=== PATIENT | male | born 1960 | race Caucasian/White ===

== ENCOUNTER 2017-09-05 05:20 | Inpatient (IN) | payer BC ==
[~2017-09-05] VITALS: Ht 188 cm; Wt 107.0 kg
[2017-09-05] VITALS (58 sets, daily range): BP systolic 119–161; BP diastolic 70–123
[2017-09-05 05:47] LABS: Basophils # (auto) 0 uL; Basophils % (auto) 0.2 % (0.0-2.0); Eosinophils # (auto) 0.3 uL; Eosinophils % (auto) 3.4 % (0.0-7.0); Hematocrit 42.7 % (41.0-53.0); Hemoglobin 14.8 g/dL (13.5-17.5); Lymphocytes # (auto) 2.7 uL; Lymphocytes % (auto) 28.3 % (10.0-50.0); Mean Corpuscular Hemoglobin 33.3 pg (28.0-32.0); Mean Corpuscular Hgb Conc. 34.7 g/dL (32.0-36.0); Mean Platelet Volume 7.6 fL (6.9-10.8); Monocytes # (auto) 0.7 uL; Monocytes % (auto) 7.7 % (0.0-12.0); Neutrophils # (auto) 5.7 uL; Neutrophils % (auto) 60.4 % (37.0-80.0); Nucleated Red Blood Cells % 0.1 %; Platelet Count (auto) 223 10^3/uL (140-450); Red Cell Distribution Width 13.1 % (11.8-14.3); White Blood Cell 9.4 10^3/uL (4.4-10.8)
[2017-09-05] MEDS ORDERED: ONDANSETRON HCL 4 MG/2 ML VIAL IV ONE (06:00)
[2017-09-05] MEDS ORDERED: MORPHINE SULF INJ 2 MG/ML SYRINGE 1ML IV ONE ×2 (06:00→07:00)
[2017-09-05 06:03] LABS: INR 0.94 (0.9-1.15); Partial Thromboplastin Time 23.1 sec (22.64-33.71); Prothrombin Time 10.2 sec (9.37-12.3)
[2017-09-05 06:09] LABS: Albumin 4.5 g/dL (3.4-5.0); BUN/Creatinine Ratio 12.9; Bilirubin, Total 0.4 mg/dL (0.2-1.0); Calcium 9.4 mg/dL (8.5-10.1); Potassium 4.6 mmol/L (3.5-5.1); Total Protein 8.4 g/dL (6.4-8.2)
[2017-09-05 06:10] LABS: Urine Bilirubin Negative (Negative); Urine Blood Negative /uL (Negative); Urine Color Yellow (Yellow); Urine Glucose 4+ mg/dL (Normal); Urine Ketone 1+ (Negative); Urine Nitrite Negative (Negative); Urine RBC <1 /hpf (0 - 3); Urine Squamous Epithelial Cell FEW /hpf (<5); Urine Urobilinogen Normal (Negative)
[2017-09-05] MEDS ORDERED: ENOXAPARIN SOD 30 MG/0.3 ML SYRINGE IV ONE (06:30)
[2017-09-05] MEDS ORDERED: NITROGLYCERIN 0.4 MG SL TAB SL ONE (06:30)
[2017-09-05] MEDS ORDERED: ATORVASTATIN 20 MG TAB PO ONE (06:30)
[2017-09-05] MEDS ORDERED: ASPirin 81 mg TAB PO ONE (06:30)
[2017-09-05 06:42] LABS: B-Type Natriuretic Peptide 13.9 pg/mL (0-100); Temperature: 22.2 C (20.0-25.0)
[2017-09-05] MEDS ORDERED: ANGIOMAX 250 MG VIAL IV ONE (06:44)
[2017-09-05] MEDS ORDERED: fentaNYL CITRATE 100 MCG/2 ML VL ONE (06:44)
[2017-09-05] MEDS ORDERED: LIDOCAINE 2%HCL (LOCAL ANESTH.) INJ 20ML MDV ONE (06:45)
[2017-09-05] MEDS ORDERED: IODIXANOL 320MG/ML 100ML BTL IV ONE (06:45)
[2017-09-05] MEDS ORDERED: SODIUM CHL 0.9% 50 ML ONE (06:45)
[2017-09-05] MEDS ORDERED: MIDAZOLAM HCL 1MG/1ML-2 ML VIAL ONE (06:45)
[2017-09-05] MEDS ORDERED: MORPHINE SULF INJ 2 MG/ML SYRINGE 1ML ONE (06:48)
[2017-09-05] MEDS ORDERED: EPTIFIBATIDE DRIP(0.75MG/ML) 100 ML IV ONE ×2 (07:30→08:00)
[2017-09-05] MEDS ORDERED: TICAGRELOR 90 MG TAB ONE (07:31)
[2017-09-05] MEDS ORDERED: DEXTROSE (50%) 50ML SYRG IV PRN (08:00)
[2017-09-05] MEDS ORDERED: ZOLPIDEM TARTRATE 5 MG TAB PO PRN (08:00)
[2017-09-05] MEDS ORDERED: HYDROcodone-ACET 5/325MG TAB PO PRN (08:00)
[2017-09-05] MEDS ORDERED: ACETAMINOPHEN 500 MG TAB PO PRN (08:00)
[2017-09-05] MEDS ORDERED: NITROGLYCERIN 0.4 MG SL TAB SL PRN ×2 (08:00)
[2017-09-05] MEDS ORDERED: chlordiazePOXIDE HCL 25 MG CAP PO PRN (08:15)
[2017-09-05] MEDS ORDERED: LORazepam 2MG/ML-1ML VIAL IV PRN (08:15)
[2017-09-05] MEDS: InsuLIN REG 1unit/0.01ml Soln (100units/ml) SC SCH ×4 (08:55→22:59)
[2017-09-05] MEDS: ENALAPRIL MALEATE 2.5 MG TAB PO SCH (10:08)
[2017-09-05] MEDS: FOLIC ACID 1 MG TAB PO SCH (10:08)
[2017-09-05] MEDS: THIAMINE HCL 100 MG TAB PO SCH (10:08)
[2017-09-05] MEDS: FAMOTIDINE 20 MG TAB PO SCH ×2 (10:09→22:59)
[2017-09-05] MEDS: METOPROLOL TARTRATE 25 MG TAB PO SCH ×2 (10:09→22:59)
[2017-09-05] MEDS: MAGNESIUM OXIDE 400 MG TAB PO SCH ×2 (10:09→22:59)
[2017-09-05] MEDS: MULTIPLE VITAMIN TAB PO SCH (10:22)
[2017-09-05] MEDS: ACCU-CHEK COMFORT CURVE STRIP VI SCH ×3 (11:38→22:59)
[2017-09-05] MEDS: EPTIFIBATIDE DRIP(0.75MG/ML) 100 ML IV SCH ×3 (12:00→19:08)
[2017-09-05] MEDS ORDERED: GLIP-116 PO (15:07)
[2017-09-05] MEDS ORDERED: LOSA50TA6 PO (15:07)
[2017-09-05] MEDS ORDERED: METF-371 PO (15:07)
[2017-09-05] MEDS: MORPHINE SULF INJ 2 MG/ML SYRINGE 1ML IV PRN ×2 (16:05→17:27)
[2017-09-05 17:00] LABS: Magnesium 2.2 mg/dL (1.6-2.6); Potassium 4.2 mmol/L (3.5-5.1)
[2017-09-05] MEDS: ATORVASTATIN 20 MG TAB PO SCH (22:59)
[2017-09-05] MEDS: TICAGRELOR 90 MG TAB PO SCH (22:59)
[2017-09-06] VITALS (48 sets, daily range): BP systolic 106–152; BP diastolic 59–100
[2017-09-06] MEDS: EPTIFIBATIDE DRIP(0.75MG/ML) 100 ML IV SCH ×2 (00:32→06:10)
[2017-09-06 05:02] LABS: BUN/Creatinine Ratio 13.9; Calcium 8.6 mg/dL (8.5-10.1)
[2017-09-06] MEDS: ACCU-CHEK COMFORT CURVE STRIP VI SCH ×4 (06:04→21:19)
[2017-09-06] MEDS: InsuLIN REG 1unit/0.01ml Soln (100units/ml) SC SCH ×4 (06:05→21:29)
[2017-09-06] MEDS ORDERED: EPTIFIBATIDE DRIP(0.75MG/ML) 100 ML IV ONE (06:06)
[2017-09-06 07:18] LABS: Basophils # (auto) 0 uL; Basophils % (auto) 0.3 % (0.0-2.0); Eosinophils # (auto) 0.1 uL; Eosinophils % (auto) 0.8 % (0.0-7.0); Hematocrit 41.1 % (41.0-53.0); Lymphocytes # (auto) 2.4 uL; Mean Corpuscular Volume 96.9 fL (80.0-100.0); Mean Platelet Volume 8.1 fL (6.9-10.8); Monocytes % (auto) 10.2 % (0.0-12.0); Neutrophils # (auto) 6.5 uL; Neutrophils % (auto) 64.7 % (37.0-80.0); Nucleated Red Blood Cells % 0.1 %; Platelet Count (auto) 205 10^3/uL (140-450); Red Cell Distribution Width 12.8 % (11.8-14.3); White Blood Cell 10.1 10^3/uL (4.4-10.8)
[2017-09-06] MEDS: FAMOTIDINE 20 MG TAB PO SCH ×2 (10:00→21:38)
[2017-09-06] MEDS: FOLIC ACID 1 MG TAB PO SCH (10:00)
[2017-09-06] MEDS: TICAGRELOR 90 MG TAB PO SCH ×2 (10:00→21:37)
[2017-09-06] MEDS: METOPROLOL TARTRATE 25 MG TAB PO SCH ×2 (10:00→21:39)
[2017-09-06] MEDS: MULTIPLE VITAMIN TAB PO SCH (10:00)
[2017-09-06] MEDS: ASPirin 81 mg TAB PO SCH (10:00)
[2017-09-06] MEDS: MAGNESIUM OXIDE 400 MG TAB PO SCH ×2 (10:00→21:38)
[2017-09-06] MEDS: THIAMINE HCL 100 MG TAB PO SCH (10:00)
[2017-09-06] MEDS: ENALAPRIL MALEATE 2.5 MG TAB PO SCH (10:00)
[2017-09-06] MEDS: ATORVASTATIN 20 MG TAB PO SCH (21:38)
[2017-09-07] VITALS: BP 111/70
[2017-09-07 04:00] VITALS: BP 111/70
[2017-09-07] MEDS: InsuLIN REG 1unit/0.01ml Soln (100units/ml) SC SCH ×2 (07:00→11:30)
[2017-09-07] MEDS: ACCU-CHEK COMFORT CURVE STRIP VI SCH ×2 (07:00→11:30)
[2017-09-07] MEDS: MULTIPLE VITAMIN TAB PO SCH (09:26)
[2017-09-07] MEDS: MAGNESIUM OXIDE 400 MG TAB PO SCH (09:26)
[2017-09-07] MEDS: FOLIC ACID 1 MG TAB PO SCH (09:26)
[2017-09-07] MEDS: ASPirin 81 mg TAB PO SCH (09:26)
[2017-09-07] MEDS: FAMOTIDINE 20 MG TAB PO SCH (09:26)
[2017-09-07] MEDS: METOPROLOL TARTRATE 25 MG TAB PO SCH (09:27)
[2017-09-07] MEDS: ENALAPRIL MALEATE 2.5 MG TAB PO SCH (09:27)
[2017-09-07] MEDS: THIAMINE HCL 100 MG TAB PO SCH (10:00)
[2017-09-07] MEDS: TICAGRELOR 90 MG TAB PO SCH (10:00)
[2017-09-07 12:53] VITALS: BP 146/83
== END 2017-09-07 16:00 | disposition home or self-care (01) | DRG 247 ==
LOC: ER 05:20 → CATH 05:21 → ICU WEST 05:22 → TELE-WESTW 06:54
PROVIDERS: ADMIT Specialist; ATTEND Specialist
PROC: 027034Z Dilation of Coronary Artery, One Artery with Drug-eluting Intraluminal Device, Percutaneous Approach (ICD-10-PCS; principal; 2017-09-05)
PROC: 4A023N7 Measurement of Cardiac Sampling and Pressure, Left Heart, Percutaneous Approach (ICD-10-PCS; 2017-09-05)
PROC: B2111ZZ Fluoroscopy of Multiple Coronary Arteries using Low Osmolar Contrast (ICD-10-PCS; 2017-09-05)
PROC: B2151ZZ Fluoroscopy of Left Heart using Low Osmolar Contrast (ICD-10-PCS; 2017-09-05)
DX: I21.09 ST elevation (STEMI) myocardial infarction involving other coronary artery of anterior wall (principal); E11.9 Type 2 diabetes mellitus without complications; I10 Essential (primary) hypertension; F12.90 Cannabis use, unspecified, uncomplicated; Z82.49 Family history of ischemic heart disease and other diseases of the circulatory system
CPT/HCPCS: 36415; 71010; 80048; 80053; 80061; 80307; 81001; 82962; 83036; 83735; 83880; 84132; 84443; 84484; 85025; 85379; 85610; 85730; 86850; 86900; 86901; 87081; 92928; 93005; 93458; 94761; 96374; 96375; 99152; 99153; C1874; J1815; J2250; J2405; Q9967